=== PATIENT | male | born 1980 | race Caucasian/White ===

== ENCOUNTER 2018-12-29 10:36 | Emergency (ER) | payer OTHER ==
[~2018-12-29] VITALS: Ht 167.6 cm; Wt 104.3 kg
[2018-12-29 10:37] VITALS: BP 133/71
== END 2018-12-29 11:22 | disposition home or self-care (01) ==
LOC: ER 10:36
DX: Z71.1 Person with feared health complaint in whom no diagnosis is made (principal)